=== PATIENT | male | born 1975 | race Caucasian/White ===

== ENCOUNTER 2016-10-25 23:33 | Emergency (ER) | payer BC | END 2016-10-26 03:40 | disposition home or self-care (01) | LOC: ER 23:33 | DX: H81.399 Other peripheral vertigo, unspecified ear (principal); M94.0 Chondrocostal junction syndrome [Tietze]; F43.10 Post-traumatic stress disorder, unspecified; I10 Essential (primary) hypertension; F41.9 Anxiety disorder, unspecified; F17.210 Nicotine dependence, cigarettes, uncomplicated; Z90.49 Acquired absence of other specified parts of digestive tract; Z88.0 Allergy status to penicillin | CPT/HCPCS: 36415; 96361; 96374; 96375; J2550; Q9967 ==